=== PATIENT | female | born 1985 | race Two or more races ===

== ENCOUNTER 2017-07-12 18:29 | Emergency (ER) | payer SELFPAY ==
[~2017-07-12] VITALS: Ht 154.9 cm; Wt 99.8 kg
--- NOTE | 2017-07-12 19:10 | PHYS DOC ---
Adult General Chief Complaint Chief Complaint: ABDOMINAL PAIN HPI HPI Patient is a 32 year old F who presents with vaginal bleeding for the past 5 months. Patient states she was seen in a clinic last week and was prescribed an unknown medication that was supposed to stop her bleeding within 3 days. Patient does not have [facility]. Patient states she's having large blood clots and going through 1 pad an hour. Patient describes some suprapubic tenderness. Patient denies any nausea or vomiting. Patient denies any chest pain shortness of breath. Patient denies any lightheaded dizziness. Patient has no other complaints. Review of Systems Review of Systems GEN: Denies fevers, chills, sweats HEENT: Denies blurred vision, sore throat CV: Denies chest pain RESP: Denies shortness of air, cough GI: Denies n/v/d : Vaginal bleeding NEURO: Denies confusion, dizziness MSK: Denies weakness, joint pain/swelling Current Medications Current Medications Current Medications Medications (Trade) Dose Ordered Sig/Caren Start Time Stop Time Status Last Admin Dose Admin Sodium Chloride 1,000 ml @ 1,000 mls/hr 1X ONCE 07/12/17 19:15 07/12/17 20:14 DC 07/12/17 19:37 1,000 MLS/HR Allergies Allergies Allergies Coded Allergies Type Severity Reaction Last Updated Verified No Known Drug Allergies 07/12/17 No Physical Exam Physical Exam GEN.: No apparent distress. Alert and oriented. HEENT: Head is normocephalic, atraumatic NECK: Supple. LUNGS: CTAB. HEART: RRR, S1, S2 present. Peripheral pulses intact ABDOMEN: Soft, left lower quadrant abdominal pain with palpation, no rebound tenderness, no abdominal distention. Positive bowel sounds. EXTREMITIES: Without any cyanosis. NEUROLOGIC: Normal speech, normal tone PSYCHIATRIC: Normal affect, normal mood. SKIN: No ulcerations Current Patient Data Vital Signs Vital Signs Date Time Temp Pulse Resp B/P (MAP) Pulse Ox O2 Delivery O2 Flow Rate FiO2 07/12/17 18:51 99.1 110 18 153/125 (134) 100 Room Air 99.1 Lab Values Laboratory Tests Test 07/12/17 17:58 07/12/17 19:05 07/12/17 19:25 07/12/17 22:00 POC Urine HCG, Qualitative Hcg negative (Negative) Urine Collection Type Unknown Urine Color Red Urine Clarity Cloudy Urine pH 7.5 Urine Specific [place] 1.015 Urine Protein 30 mg/dL (NEG-TRACE) Urine Glucose (UA) Negative mg/dL (NEG) Urine Ketones (Stick) Negative mg/dL (NEG) Urine Blood Large (NEG) Urine Nitrite Negative (NEG) Urine Bilirubin Negative (NEG) Urine Urobilinogen Dipstick 1.0 mg/dL (0.2 mg/dL) Urine Leukocyte Esterase Trace (NEG) Urine RBC Tntc /HPF (0-2) Urine WBC 1-4 /HPF (0-4) Urine Squamous Epithelial Cells Few /LPF Urine Bacteria Few /HPF (0-FEW) Urine Mucus Slight /LPF Sodium Level 142 mmol/L (136-145) Potassium Level 4.1 mmol/L (3.5-5.1) Chloride Level 105 mmol/L (98-107) Carbon Dioxide Level 25 mmol/L (21-32) Anion Gap 12 (6-14) Blood Urea Nitrogen 9 mg/dL (7-20) Creatinine 0.7 mg/dL (0.6-1.0) Estimated GFR (Cockcroft-Gault) 95.8 BUN/Creatinine Ratio 13 (6-20) Glucose Level 111 mg/dL (70-99) H Calcium Level 8.8 mg/dL (8.5-10.1) Total Bilirubin 0.3 mg/dL (0.2-1.0) Aspartate Amino Transferase (AST) 18 U/L (15-37) Alanine Aminotransferase (ALT) 25 U/L (14-59) Alkaline Phosphatase 54 U/L (46-116) Total Protein 7.4 g/dL (6.4-8.2) Albumin 4.0 g/dL (3.4-5.0) Albumin/Globulin Ratio 1.2 (1.0-1.7) White Blood Count 10.5 x10^3/uL (4.0-11.0) Red Blood Count 4.09 x10^6/uL (3.50-5.40) Hemoglobin 11.1 g/dL (12.0-15.5) L Hematocrit 33.6 % (36.0-47.0) L Mean Corpuscular Volume 82 fL (79-100) Mean Corpuscular Hemoglobin 27 pg (25-35) Mean Corpuscular Hemoglobin Concent 33 g/dL (31-37) Red Cell Distribution Width 15.2 % (11.5-14.5) H Platelet Count 218 x10^3/uL (140-400) Neutrophils (%) (Auto) 59 % (31-73) Lymphocytes (%) (Auto) 31 % (24-48) Monocytes (%) (Auto) 7 % (0-9) Eosinophils (%) (Auto) 2 % (0-3) Basophils (%) (Auto) 1 % (0-3) Neutrophils # (Auto) 6.2 x10^3uL (1.8-7.7) Lymphocytes # (Auto) 3.2 x10^3/uL (1.0-4.8) Monocytes # (Auto) 0.8 x10^3/uL (0.0-1.1) Eosinophils # (Auto) 0.2 x10^3/uL (0.0-0.7) Basophils # (Auto) 0.1 x10^3/uL (0.0-0.2) Laboratory Tests 07/12/17 22:00 Laboratory Tests 07/12/17 19:25 EKG EKG [] Radiology/Procedures Radiology/Procedures Pelvic ultrasound: Impression: 1. Somewhat thickened endometrial stripe measuring 14.6 mm. This is within limits of normal for a premenopausal patient. 2. Normal bilateral ovaries[] Course & Med Decision Making Course & Med Decision Making Pertinent Labs and Imaging studies reviewed. (See chart for details) ED course: Patient was seen and examined emergency room CBC, CMP, pelvic ultrasound, UA, urine was ordered 2223: Patient was reevaluated and updated on the ultrasound findings and the lab work. Explained to the patient that the ultrasound was unremarkable and since her hemoglobin and vital signs were all stable she can be discharged home with follow-up with [facility]. Recommended short-term follow-up with [facility] and and strict return precautions were given and that if she developed any lightheaded dizziness or passed out she'll need to return emergently to the emergency room. MDM: After reviewing the chart, CC/HPI/PMH, physical exam, [lab results], [ radiological results], I do not believe the patient has emergent gynecological issue warranting further workup and/or admission at this time. I do not believe the patient needs emergent blood transfusion secondary to her vaginal bleeding. I believe the patient follow up as an outpatient with [facility] for further evaluation and management of her vaginal bleeding. Patient is stable for discharge. Additional verbal discharge instructions were provided to the patient and that if symptoms get worse or any new symptoms arise that are worrisome to the patient she is to return to the emergency room immediately [] Dragon Disclaimer Dragon Disclaimer This electronic medical record was generated, in whole or in part, using a voice recognition dictation system. Departure Departure Impression: Primary Impression: Dysfunctional uterine bleeding Disposition: 01 HOME, SELF-CARE Condition: IMPROVED Patient Instructions: Uterine Bleeding, Dysfunctional, [id number] Additional Instructions: Please follow-up with your [facility] in the next one to 2 days and return if symptoms get worse ROSALIA NAVARRETE DO Jul 12, 2017 19:10
[2017-07-12] MEDS ORDERED: IV NORMAL SALINE 1000ML BAG 1,000 ML IV ONE (19:15)
[2017-07-12 19:19] LABS: BILIRUBIN,URINE NEGATIVE (NEG); GLUCOSE,URINE NEGATIVE (NEG); NITRITE,URINE NEGATIVE (NEG); PH,URINE 7.5; PROTEIN,URINE 30 mg/dL (NEG-TRACE)
[2017-07-12 19:38] LABS: BACTERIA,URINE FEW /HPF (0-FEW); RBC,URINE TNTC /HPF (0-2); SQUAMOUS EPITHELIAL CELL,UR FEW /LPF
[2017-07-12 19:47] LABS: CALCIUM 8.8 mg/dL (8.5-10.1); CREATININE 0.7 mg/dL (0.6-1.0); GFR 95.8; POTASSIUM 4.1 mmol/L (3.5-5.1)
[2017-07-12 19:55] LABS: ALBUMIN/GLOBULIN RATIO 1.2 (1.0-1.7); TOTAL BILIRUBIN 0.3 mg/dL (0.2-1.0); TOTAL PROTEIN 7.4 g/dL (6.4-8.2)
--- NOTE | 2017-07-12 21:04 | RAD ---
Exam performed: Pelvic ultrasound. Indication: Dysfunctional uterine bleeding for 5 months Date of Service: 07/12/2017. Comparison: None available Technique: Transabdominal and transvaginal Findings: The uterus measures 9.1 x 5.1 x 3.8 cm. The endometrial stripe measures 14.6 mm. Bilateral ovaries are normal. The right ovary measures 3.9 x 3.0 x 2.3 cm.The left ovary measures 3.3 x 2.7 x 2.3 cm . Symmetric vascularity to both ovaries. There is no free fluid in the posterior cul-de-sac. Impression: 1. Somewhat thickened endometrial stripe measuring 14.6 mm. This is within limits of normal for a premenopausal patient. 2. Normal bilateral ovaries Electronically signed by: Rona Montana MD (07/12/2017 9:00 PM) [facility]
[2017-07-12 22:14] LABS: BASO # 0.1 x10^3/uL (0.0-0.2); BASO % 1 % (0-3); EOS % 2 % (0-3); HEMATOCRIT 33.6 % (36.0-47.0); HEMOGLOBIN 11.1 g/dL (12.0-15.5); LYMPH # 3.2 x10^3/uL (1.0-4.8); LYMPH % 31 % (24-48); MEAN CORPUSCULAR HEMOGLOBIN 27 pg (25-35); MEAN CORPUSCULAR HGB CONC 33 g/dL (31-37); MEAN CORPUSCULAR VOLUME 82 fL (79-100); MONO % 7 % (0-9); NEUT % 59 % (31-73); PLATELET COUNT 218 x10^3/uL (140-400); RED BLOOD COUNT 4.09 x10^6/uL (3.50-5.40); RED CELL DISTRIBUTION WIDTH 15.2 % (11.5-14.5); WHITE BLOOD COUNT 10.5 x10^3/uL (4.0-11.0)
[2017-07-12 22:40] VITALS: BP 110/57
== END 2017-07-12 22:50 | disposition home or self-care (01) ==
LOC: ER 18:29
DX: N93.8 Other specified abnormal uterine and vaginal bleeding (principal)
CPT/HCPCS: 36415; 76830; 76856; 80053; 81001; 81025; 85025; 87086; 96360; 99285; J7030

== ENCOUNTER 2022-02-15 20:14 | Emergency (ER) | payer SELFPAY ==
[~2022-02-15] VITALS: Ht 154.9 cm; Wt 75.2 kg
--- NOTE | 2022-02-15 21:03 | RAD ---
Exam: Left femur 2 views INDICATION: Pain TECHNIQUE: Frontal, lateral views of the left femur Comparisons: None FINDINGS: Bone mineralization is normal. No acute or healed fractures. Soft tissues are unremarkable. Joint spa philip are well-maintained. IMPRESSION: No acute osseous abnormality. Electronically signed by: Enrique Blackwell MD (02/15/2022 9:01 PM) LISA
--- NOTE | 2022-02-16 00:22 | RAD ---
Examination: LEFT LOWER EXTREMITY - UNILATERAL VENOUS DOPPLER Technique: Ultrasound evaluation of the left lower extremity was performed from the groin to the uppe r calf with friedman scale, spectral and color doppler evaluation. Indication: Leg swelling Comparison: None Findings: There is normal venous flow and compressibility of left common femoral vein, femoral vein, popliteal vein, and visualized proximal calf veins. Impression: No evidence for deep vein thrombosis of left lower extremity from the level of the calf v eins to the groins. Electronically signed by: Miguel Ángel Emerson MD (02/16/2022 12:19 AM) [facility]
[2022-02-16] MEDS ORDERED: NAPR-514 PO (01:06)
[2022-02-16] MEDS ORDERED: GABA300C18 PO (01:06)
[2022-02-16] MEDS ORDERED: CYCL10TA19 PO (01:06)
--- NOTE | 2022-02-16 01:07 | PHYS DOC ---
Past Medical History Past Medical History: Diabetes-Type II, Other Additional Past Medical Histor: UTERINE CYSTS Past Surgical History: No Surgical History Smoking Status: Never Smoker Alcohol Use: None Drug Use: None General Adult EDM: Chief Complaint: LOWER EXT PAIN HPI: HPI: Patient is a 36 year old female with history of hypertension presenting to the ED today complaining of left thigh pain, symptoms of been going on for 1 week. Patient denies any injuries, she states the pain is worse on certain movements as well as touching the back of the thigh. Describes the pain as sharp and intermittent. Rates the pain as mild. She states she is concerned she could have a DVT. Denies any use of hormones. Denies any personal family history of DVTs. Denies any chest pain, shortness of breath. Review of Systems: Review of Systems: Constitutional: Denies fever or chills. [] : Denies dysuria. [] Musculoskeletal: Reports left thigh pain, denies any back pain Integument: Denies rash. [] Neurologic: Denies headache, focal weakness or sensory changes. [] Psychiatric: Denies depression or anxiety. [] Heart Score: C/O Chest Pain: N/A Risk Factors: Risk Factors: DM, Current or recent (<one month) smoker, HTN, HLP, family history of CAD, obesity. Risk Scores: Score 0 - 3: 2.5% MACE over next 6 weeks - Discharge Home Score 4 - 6: 20.3% MACE over next 6 weeks - Admit for Clinical Observation Score 7 - 10: 72.7% MACE over next 6 weeks - Early Invasive Strategies Allergies: Allergies: Allergies Coded Allergies Type Severity Reaction Last Updated Verified No Known Drug Allergies 07/12/17 No Physical Exam: PE: Constitutional: Well developed, well nourished, no acute distress, non-toxic appearance. [] Skin: Warm, dry, no erythema, no rash. [] Back: No tenderness, no CVA tenderness. [] Extremities: Left lower extremity with no obvious deformity, no tenderness, no redness, no warmth, negative Homans' sign to the left lower extremity. +2 bilateral pedal pulses. Cap refill less than 2 seconds to left lower extremity, sensation intact to the left lower extremity Neurologic: Alert and oriented X 3, normal motor function, normal sensory function, no focal deficits noted. [] Psychologic: Affect normal, judgement normal, mood normal. [] Current Patient Data: Vital Signs: Vital Signs Date Time Temp Pulse Resp B/P (MAP) Pulse Ox O2 Delivery O2 Flow Rate FiO2 02/15/22 20:15 99.0 70 18 142/77 (98) 100 Room Air 99.0 EKG: EKG: [] Radiology/Procedures: Radiology/Procedures: []PROCEDURE: FEMUR LEFT 2 VIEW Exam: Left femur 2 views INDICATION: Pain TECHNIQUE: Frontal, lateral views of the left femur Comparisons: None FINDINGS: Bone mineralization is normal. No acute or healed fractures. Soft tissues are unremarkable. Joint spaces are well-maintained. IMPRESSION: No acute osseous abnormality. Electronically signed by: Enrique Mcdonald MD (02/15/2022 9:01 PM) [facility] DICTATED and SIGNED BY: ENRIQUE MCDONALD MD DATE: 02/15/222058 Think thisPROCEDURE: VENOUS LOWER EXTREMITY LEFT Examination: LEFT LOWER EXTREMITY - UNILATERAL VENOUS DOPPLER Technique: Ultrasound evaluation of the left lower extremity was performed from the groin to the upper calf with friedman scale, spectral and color doppler evaluation. Indication: Leg swelling Comparison: None Findings: There is normal venous flow and compressibility of left common femoral vein, femoral vein, popliteal vein, and visualized proximal calf veins. Impression: No evidence for deep vein thrombosis of left lower extremity from the level of the calf veins to the groins. Electronically signed by: Miguel Ángel Sutherland MD (02/16/2022 12:19 AM) [facility] DICTATED and SIGNED BY: MIGUEL ÁNGEL SUTHERLAND MD DATE: 02/16/22 0014 Course & Med Decision Making: Course & Med Decision Making Pertinent Labs and Imaging studies reviewed. (See chart for details) This a 36-year-old female patient presenting to the ED today with left thigh pain, symptoms of been going on for 1 week, she is concerned she has a DVT to the left lower extremity. She has no risk factors for DVTs. Left femur x-rays are negative for any acute findings, venous Doppler of the left lower extremity is negative. Was discharged to home. Follow-up with PCP in 1 week Nicky Disclaimer: Nicky Disclaimer: This electronic medical record was generated, in whole or in part, using a voice recognition dictation system. Departure Departure Impression: Primary Impression: Lower extremity pain Qualified Codes: M79.605 - Pain in left leg Disposition: HOME / SELF CARE / HOMELESS Condition: STABLE Referrals: NO PCP (PCP) Follow-up with your doctor in 1 to 2 weeks Patient Instructions: Musculoskeletal Pain Additional Instructions: You were evaluated in the emergency room for left flank pain, your left femur x- ray is negative for any acute findings, your left lower extremity ultrasound is negative for blood clot. Your pain appears to be musculoskeletal, take the prescribed medications as needed for your symptoms. Follow-up with your doctor in 1 week Scripts Naproxen (NAPROXEN) 500 Mg Tablet 1 TAB PO BID for pain, #14 TAB 0 Refills Prov: EDILSON JUNG APRN 02/16/22 Cyclobenzaprine Hcl (CYCLOBENZAPRINE HCL) 10 Mg Tablet 1 TAB PO TID, #30 TAB Prov: EDILSON JUNG APRN 02/16/22 Gabapentin (GABAPENTIN ) 300 Mg Capsule 300 MG PO TID for NEUROGENIC PAIN, #30 CAP Prov: EDILSON JUNG APRN 02/16/22 EDILSON JUNG APRN Feb 16, 2022 01:06
[2022-02-16 01:20] VITALS: BP 142/80
== END 2022-02-16 01:24 | disposition home or self-care (01) ==
LOC: ER 20:14
DX: M79.652 Pain in left thigh (principal); E11.9 Type 2 diabetes mellitus without complications
CPT/HCPCS: 73552; 93971; 99284-25